=== PATIENT | male | born 1955 | race Caucasian/White ===

== ENCOUNTER 2021-03-24 13:34 | Emergency (ER) | payer BC, SELFPAY ==
--- NOTE | ~2021-03-24 | XR_ITS ---
EXAMINATION: XR chest 2V DATE: 03/24/2021 14:41 INDICATION: Shortness of breath. Left-sided chest pain. Cough. TECHNIQUE: Frontal and lateral views of the chest were obtained on 3 radiographs. COMPARISON: Chest 2 views 06/14/2017 FINDINGS: The lungs are hyperexpanded with lucencies, consistent with emphysema. No pleural effusion or pneumothorax. The heart size is normal. IMPRESSION: 1. Emphysema. Reviewed, dictated and finalized at location B. IMPRESSION: 1. Emphysema.
[2021-03-24 13:40] VITALS: BP 131/92; PULSE 111; RESP 20; TEMP 36.7; O2SAT 85
--- NOTE | 2021-03-24 14:11 | ECG_ITS ---
Measurements Intervals [place] Rate: 89 P: 89 [place]: 142 QRS: 90 QRSD: 122 T: 84 QT: 393 QTc: 481 Interpretive Statements SINUS RHYTHM RIGHT BUNDLE BRANCH BLOCK BASELINE ARTIFACT- V4-V5 ABNORMAL ECG Electronically Signed On 03-24-2021 14:43:26 CDT by Anand Grewal D.O.
[2021-03-24] MEDS: methylPREDNISolone SOD SUCC 125 MG VIAL IV PUSH (14:26)
[2021-03-24] MEDS: SODIUM CHLORIDE 0.9% IV 500 ML 999 ML IV CONT (14:26)
[2021-03-24 14:28] LABS: Basophils Absolute Auto 0.05 K/mm3 (0.00-0.10); Basophils Percent Auto 0.6 % (0.0-1.0); Eosinophils Absolute Auto 0.12 K/mm3 (0.02-0.50); Eosinophils Percent Auto 1.3 % (1.0-6.0); Hematocrit 42.7 % (40.0-54.0); Hemoglobin 14.6 g/dL (14.0-18.0); Immature Granulocyte Absolute 0.03 K/mm3 (0.00-0.00); Immature Granulocyte Percent A 0.3 % (0.0-0.0); Lymphocytes Absolute Auto 1.36 K/mm3 (1.10-4.50); Lymphocytes Percent Auto 15.1 % (18.0-42.0); Mean Corpuscular HGB Conc 34.2 g/dL (32.0-36.0); Mean Corpuscular Hemoglobin 33.7 pg (27.0-31.0); Mean Corpuscular Volume 98.6 fL (78.0-102.0); Mean Platelet Volume 10.2 fl (8.7-11.0); Monocytes Absolute Auto 0.67 K/mm3 (0.10-0.90); Monocytes Percent Auto 7.5 % (2.0-11.0); Neutrophils Absolute Auto 6.8 K/mm3 (1.7-7.2); Neutrophils Percent Auto 75.2 % (50.0-70.0); Platelet Count Result 188 K/mm3 (150-420); Red Blood Count 4.33 M/mm3 (4.70-6.10); Red Cell Distribution Width 13.2 % (11.6-14.4)
[2021-03-24] MEDS: IPRATROPIUM 0.5 MG/ALBUTEROL SULFATE 2.5 MG AMPUL.NEB 3 ML INHALATION (14:43)
[2021-03-24 14:45] VITALS: PULSE 90; RESP 20; O2SAT 95
[2021-03-24 14:48] LABS: Alanine Aminotransferase 24 U/L (16-63); Albumin Level 3.8 g/dL (3.4-5.0); Alkaline Phosphatase 88 U/L (46-116); Anion Gap 6 mmol/L (8-16); Aspartate Amino Transferase 28 U/L (15-37); Bilirubin,Total 0.9 mg/dL (0.00-1.00); Blood Urea Nitrogen 8 mg/dL (7-18); Calcium 8.8 mg/dL (8.5-10.1); Carbon Dioxide 30 mmol/L (21-32); Chloride 103 mmol/L (98-108); Estimated Glomerular Filt Rate > 60; Glucose 104 mg/dL (70-99); Osmolality Calculated 286 mOsm/kg (285-295); Potassium 4.2 mmol/L (3.5-5.1); Sodium 139 mmol/L (136-145); Total Protein 6.3 g/dL (6.4-8.2)
[2021-03-24 14:49] LABS: Troponin I 5.3 ng/L (0.00-60.4)
[2021-03-24 14:54] VITALS: PULSE 88; RESP 20; O2SAT 100
--- NOTE | 2021-03-24 14:57 | ED.SOB ---
HPI - SOB/Dyspnea General Chief Complaint: Shortness of Breath/Dyspnea Stated Complaint: SOB Source: patient Mode of arrival: ambulatory History of Present Illness HPI Narrative: this 65-year-old male with a history of COPD that presents with increased shortness of breath currently uses only albuterol at home and has not had to use albuterol in quite a while, but yesterday he was outdoors and apparently became more short of breath with a cough currently there is no audible wheezing no fever chills no chest pain no abdominal pain no flank pain no nausea vomiting. MD elicited complaint: shortness of breath and cough Pertinent past history: COPD Onset (ago): day(s) Context: allergen exposure Timing: constant Severity: mild Exacerbating factors: nothing Relieving factors: bronchodilators Known history of: COPD Associated symptoms: denies other symptoms Related Data Home Medications Medication Instructions Recorded Confirmed ipratropium-albuterol 3 ml INHALATION TID PRN 03/24/21 03/24/21 montelukast 10 mg PO DAILY 03/24/21 03/24/21 prednisone 2.5 mg PO DAILY 03/24/21 03/24/21 Allergies Allergy/AdvReac Type Severity Reaction Status Date / Time No Known Allergies Allergy Unverified 05/25/16 13:27 Review of Systems Review of Systems: All systems reviewed & are unremarkable except as noted in HPI and below PMFSH Past Medical History Medical History COPD (chronic obstructive pulmonary disease) Exam Const: General: no acute distress Orientation/consciousness: patient oriented x3 HENMT: Head: normal to inspection and contusion Eyes: Conjunctivae: conjunctivae normal Pupils: Equal, round and reactive pupils present Neck: Neck: normal visual inspection Chest: Chest palpation & inspection: normal inspection of the chest Resp: Effort & Inspection: normal respiratory effort Auscultation: clear to auscultation bilaterally Cardio: Rate: regular rate Rhythm: regular rhythm GI: GI Palp: Yes Soft to palpation Skin: General skin exam: normal color Rashes: no rashes Neuro: General: patient oriented x3 and moves all extremities Psych: Mental Status: mental status grossly normal Affect: normal affect Course Course Emergency Course: patient doing well improved after breathing treatment and IV steroids and will send home with some inhalers and p.o. steroids and p.o. antibiotics. Vital Signs Vital signs: Vital Signs Temperature 36.7 C 03/24/21 13:40 Pulse Rate 111 H 03/24/21 13:40 Respiratory Rate 20 03/24/21 13:40 Blood Pressure 131/92 H 03/24/21 13:40 Pulse Oximetry 85 L 03/24/21 13:40 Temperature 36.7 C 03/24/21 13:40 Pulse Rate 88 03/24/21 14:54 Respiratory Rate 20 03/24/21 14:54 Blood Pressure 131/92 H 03/24/21 13:40 Pulse Oximetry 100 03/24/21 14:54 MDM - SOB/Dyspnea Lab Data Result diagrams: 03/24/21 14:24 03/24/21 14:24 Labs: Lab Results 03/24/21 03/24/21 03/24/21 Range/Units 14:24 14:24 14:24 WBC 9.0 (4.8-10.8) K/mm3 RBC 4.33 L (4.70-6.10) M/mm3 Hgb 14.6 (14.0-18.0) g/dL Hct 42.7 (40.0-54.0) % MCV 98.6 (78.0-102.0) fL MCH 33.7 H (27.0-31.0) pg MCHC 34.2 (32.0-36.0) g/dL RDW 13.2 (11.6-14.4) % Plt Count 188 (150-420) K/mm3 MPV 10.2 (8.7-11.0) fl Immature Gran % (Auto) 0.3 H (0.0-0.0) % Neut % (Auto) 75.2 H (50.0-70.0) % Lymph % (Auto) 15.1 L (18.0-42.0) % [place] % (Auto) 7.5 (2.0-11.0) % Eos % (Auto) 1.3 (1.0-6.0) % Baso % (Auto) 0.6 (0.0-1.0) % Lymph # (Auto) 1.36 (1.10-4.50) K/mm3 [place] # (Auto) 0.67 (0.10-0.90) K/mm3 Eos # (Auto) 0.12 (0.02-0.50) K/mm3 Baso # (Auto) 0.05 (0.00-0.10) K/mm3 Abs Immat Gran (auto) 0.03 H (0.00-0.00) K/mm3 Absolute Neuts (auto) 6.8 (1.7-7.2) K/mm3 Absolute Nucleated RBC 0.00 (0.00-0.00) K/mm3 Nucleated RBC % 0.0 (0-0.0)
[2021-03-24 15:14] VITALS: BP 98/70; PULSE 80; O2SAT 96
== END 2021-03-24 15:25 | disposition home or self-care (01) ==
PROVIDERS: Emergency Provider Emergency Medicine; PCP Internal Medicine
DX: J42 Unspecified chronic bronchitis (principal)
CPT/HCPCS: 36415; 71046; 80053; 84484; 85025; 93005; 94640; 96361; 96374; 99283; 99284; J2930; J7040

== ENCOUNTER 2021-09-17 12:38 | Outpatient (CLI) | payer BC, SELFPAY ==
[2021-09-17 13:50] LABS: SARS-CoV-2 RNA PCR Positive (Negative)
== END 2021-09-17 12:39 | disposition home or self-care (01) ==
LOC: CHSLAB 12:42
PROVIDERS: PCP Internal Medicine; Visit Provider Internal Medicine
DX: U07.1 COVID-19 (principal)
CPT/HCPCS: C9803; U0003; U0005

== ENCOUNTER 2021-09-23 09:53 | Outpatient (CLI) | payer BC, SELFPAY ==
--- NOTE | 2021-09-23 10:00 | PC.NURSE ---
Pt to room 211 per WC. A&Ox3. Regeneron infusion plan of care explained. Consent signed. Pt oriented to room. Call jacome in reach. Reminded to call with needs.
[2021-09-23 10:15] VITALS: BP 110/68; PULSE 123; RESP 20; TEMP 38.4; O2SAT 80
[2021-09-23] MEDS: ACETAMINOPHEN 325 MG TABLET PO (10:15)
--- NOTE | 2021-09-23 10:55 | PC.NURSE ---
SAO2 up to 92% on 3L O2 per NC. Dr. Maharaj's office notified of low O2 Sat. requested pt be evaluated in the ER. ER notified, will take him after infusion is complete. Pt has no complaints of SOB, no distress noted.
[2021-09-23] MEDS: diphenhydrAMINE HCl CAP 25 MG CAPSULE PO (11:17)
[2021-09-23] MEDS: FAMOTIDINE 20 MG TABLET PO (11:17)
--- NOTE | 2021-09-23 11:40 | PC.NURSE ---
Infusion completed. Pt tolerated well. Has no complaints. Taken to ER for O2 evaluation per Dr. Maharaj's request. Pt taken to Room 6. Report given to Shruti.
== END 2021-09-23 09:54 | disposition home or self-care (01) ==
PROVIDERS: PCP Internal Medicine; Visit Provider Internal Medicine
DX: U07.1 COVID-19 (principal); J44.9 Chronic obstructive pulmonary disease, unspecified
CPT/HCPCS: A9270; J7050; M0243; Q0244

== ENCOUNTER 2021-09-23 11:47 | Emergency (ER) | payer BC, SELFPAY ==
--- NOTE | ~2021-09-23 | CT_ITS ---
EXAMINATION:CT diagnostic chest wo con DATE: 09/23/2021 12:40 INDICATION: Shortness of breath. TECHNIQUE: Computed tomography (CT) of the chest was performed without intravenous contrast. Automate d exposure control and iterative reconstruction technique were employed. The dose-length product (DLP ) was 156.58 mGy-cm. COMPARISON: Chest 2 views 03/24/2021 FINDINGS: There is severe emphysema. There is mild scarring at the lung apices. There is mucous plugg ing in posterobasal segment right lower lobe with subsegmental airspace opacities. There is mucous pl ugging in the basilar segments of left lower lobe with subsegmental airspace and groundglass opacitie s. No pleural effusion. The heart size is normal. There are coronary artery calcifications. No perica rdial effusion. There is mild thoracic spondylosis. IMPRESSION: 1. Pneumonia and mucous plugging involving the basilar lower lobes, left worse than right. 2. Severe emphysema. Reviewed, dictated and finalized at location B. COMPLIANCE COORDINATOR
--- NOTE | 2021-09-23 11:59 | ECG_ITS ---
Measurements Intervals [place] Rate: 98 P: 90 [place]: 126 QRS: 100 QRSD: 121 T: 76 QT: 372 QTc: 476 Interpretive Statements SINUS RHYTHM POSSIBLE LEFT ATRIAL ENLARGEMENT RIGHT BUNDLE BRANCH BLOCK BASELINE ARTIFACT- I, II, III, AVL, V1, V4-V5 ABNORMAL ECG Electronically Signed On 09-23-2021 13:03:22 LIFE SKILLS COACH by Anand Grewal D.O.
[2021-09-23 12:10] VITALS: BP 110/69; PULSE 112; RESP 28; TEMP 36.8; O2SAT 95
[2021-09-23 12:20] VITALS: PULSE 98; RESP 20; O2SAT 97
[2021-09-23] MEDS: ALBUTEROL SULFATE (*SP) INHALER 2 PUFF INHALATION (12:20)
[2021-09-23 12:29] LABS: Base Excess ABG 4.7 mmol/L (0-2); HCO3 ABG 29.1 mmol/L (23-29); Oxygen Content ABG 20.4 %vol (16.0-22.0); Oxygen Saturation ABG 93.1 % (95-97); Oxyhemoglobin 90.2 % (94-100); PCO2 ABG 42.1 mmHg (35-45); PO2 ABG 60.9 mmHg (80-90); Total Hemoglobin 16.1 g/dL (12.0-18.0); pH ABG 7.46 (7.35-7.45)
[2021-09-23 12:31] LABS: Device NASAL CANNULA; Modified Allen's Test Pass; Site Drawn LEFT RADIAL
[2021-09-23 12:34] LABS: Basophils Absolute Auto 0.01 K/mm3 (0.00-0.10); Basophils Percent Auto 0.1 % (0.0-1.0); Hematocrit 45.9 % (40.0-54.0); Hemoglobin 15.4 g/dL (14.0-18.0); Immature Granulocyte Absolute 0.05 K/mm3 (0.00-0.00); Immature Granulocyte Percent A 0.5 % (0.0-0.0); Lymphocytes Absolute Auto 1.02 K/mm3 (1.10-4.50); Lymphocytes Percent Auto 10.8 % (18.0-42.0); Mean Corpuscular HGB Conc 33.6 g/dL (32.0-36.0); Mean Corpuscular Hemoglobin 32.2 pg (27.0-31.0); Mean Corpuscular Volume 95.8 fL (78.0-102.0); Mean Platelet Volume 10.4 fl (8.7-11.0); Monocytes Absolute Auto 0.71 K/mm3 (0.10-0.90); Monocytes Percent Auto 7.5 % (2.0-11.0); Neutrophils Absolute Auto 7.7 K/mm3 (1.7-7.2); Neutrophils Percent Auto 81.1 % (50.0-70.0); Platelet Count Result 144 K/mm3 (150-420); Red Blood Count 4.79 M/mm3 (4.70-6.10); Red Cell Distribution Width 12.7 % (11.6-14.4); White Blood Count 9.5 K/mm3 (4.8-10.8)
[2021-09-23] MEDS: SODIUM CHLORIDE 0.9% IV 500 ML 999 ML IV CONT (12:45)
[2021-09-23] MEDS: UMECLIDINIUM BROMIDE 62.5 MCG ELLIPTA 1 PUFF INHALATION (12:46)
[2021-09-23] MEDS: DEXAMETHASONE SOD PHOS INJ 4 MG/ML VIAL IV PUSH (12:46)
[2021-09-23 12:49] LABS: Alanine Aminotransferase 41 U/L (16-63); Albumin Level 2.9 g/dL (3.4-5.0); Alkaline Phosphatase 87 U/L (46-116); Anion Gap 7 mmol/L (8-16); Aspartate Amino Transferase 59 U/L (15-37); Bilirubin,Total 0.4 mg/dL (0.00-1.00); Blood Urea Nitrogen 14 mg/dL (7-18); Carbon Dioxide 30 mmol/L (21-32); Chloride 96 mmol/L (98-108); Estimated CRCL calculation 50 ml/min; Estimated Glomerular Filt Rate > 60; Glucose 110 mg/dL (70-99); Osmolality Calculated 277 mOsm/kg (285-295); Potassium 3.9 mmol/L (3.5-5.1); Sodium 133 mmol/L (136-145); Total Protein 6.1 g/dL (6.4-8.2); Troponin I 12.8 ng/L (0.00-60.4)
[2021-09-23 12:51] LABS: Lactic Acid Reflex 1.3 mmol/L (0.4-2.0)
[2021-09-23 13:33] VITALS: BP 97/67; PULSE 83; RESP 20; O2SAT 99
--- NOTE | 2021-09-23 14:06 | PC.NURSE ---
Turned oxygen off to see if pt could maintain oxygen saturation. Will monitor pt closely.
--- NOTE | 2021-09-23 14:40 | PC.NURSE ---
Per pt ok to speak with Astrid peterson. Astrid confirms pt has oxygen concentrator at home. Astrid concerned to bring pt home. Explained to pt and Astrid that pt should wear oxygen when needed at home and at night. Discussed with pt and family to sleep elevated to help reducing coughing and difficulty breathing. Also discussed supportive and symptomatic care at home. Astrid and pt aware to come back for worsening symptoms.
[2021-09-23] MEDS: AZITHROMYCIN 250 MG TABLET 500 MG PO (14:51)
--- NOTE | 2021-09-23 15:13 | ED.SOB ---
HPI - SOB/Dyspnea General Source: patient and RN notes reviewed Mode of arrival: wheelchair Limitations: no limitations History of Present Illness MD elicited complaint: shortness of breath and cough Pertinent past history: COPD Onset (ago): day(s) (3) Timing: constant Severity: moderate Exacerbating factors: exertion Relieving factors: oxygen Known history of: COPD Associated symptoms: fever, cough and wheezing Treatment prior to arrival: none Related Data Home oxygen amount: other (pt has a concentrator) Home Medications Medication Instructions Recorded Confirmed ipratropium-albuterol 3 ml INHALATION TID PRN 03/24/21 09/23/21 montelukast 10 mg PO DAILY 03/24/21 09/23/21 prednisone 10 mg PO DAILY 09/23/21 09/23/21 Allergies Allergy/AdvReac Type Severity Reaction Status Date / Time No Known Allergies Allergy Unverified 05/25/16 13:27 Review of Systems Review of Systems: All systems reviewed & are unremarkable except as noted in HPI and below PMFSH Past Medical History Medical History COPD (chronic obstructive pulmonary disease) Exam Const: General: no acute distress Orientation/consciousness: patient oriented x3 Limitations: no limitations HENMT: Head: normal to inspection Ears: external ears normal and TM's normal bilaterally General nose exam: Normal external nose present and Normal nares present Mouth: Yes lip normal and Yes moist mucous membranes Teeth and gingiva: dentition normal Eyes: Conjunctivae: conjunctivae normal Pupils: Equal, round and reactive pupils present EOM: EOMs intact bilaterally Neck: Neck: normal visual inspection and no lymphadenopathy Chest: Chest palpation & inspection: normal inspection of the chest Resp: Effort & Inspection: tachypneic and uses accessory muscles Auscultation: crackles, rales, rhonchi and wheezes Cardio: Rate: regular rate Rhythm: regular rhythm GI: GI Palp: Yes Soft to palpation and No Tenderness to palpation present (GI) Percussion: Yes normal to percussion : General: Yes CVA tenderness Male General Exam: Yes normal external exam Back/Spine/Pelvis: Back: no CVA tenderness Skin: General skin exam: normal color Rashes: no rashes Neuro: General: patient oriented x3, moves all extremities, no meningeal signs, no focal motor deficits and CN's II-XI intact bilaterally Extrem: General: normal to inspection and no pedal edema Psych: Mental Status: mental status grossly normal Thought content: Yes Normal thought content present Course Course Emergency Course: Pt breathing was improved and he was insistent on going home. Reevaluation(s) Date: 09/23/21 Time: 12:45 Vital Signs Vital signs: Vital Signs Temperature 36.8 C 09/23/21 12:10 Pulse Rate 112 H 09/23/21 12:10 Respiratory Rate 28 H 09/23/21 12:10 Blood Pressure 110/69 09/23/21 12:10 Pulse Oximetry 95 09/23/21 12:10 Temperature 36.8 C 09/23/21 12:10 Pulse Rate 86 09/23/21 15:52 Respiratory Rate 20 09/23/21 15:52 Blood Pressure 100/69 09/23/21 15:52 Pulse Oximetry 95 09/23/21 15:52 MDM - SOB/Dyspnea Differential Diagnosis Differential diagnosis: Likely acute exacerbation of chronic obstructive airways disease, community acquired pneumonia and asthma with exacerbation Medical Records Attestation: I reviewed the patient's medical records. Lab Data Attestation: I reviewed the patient's lab results. Result diagrams: 09/23/21 12:27 09/23/21 12:27 Labs: Lab Results 09/23/21 09/23/21 09/23/21 Range/Units 12:27 12:27 12:27 WBC 9.5 (4.8-10.8) K/mm3 RBC 4.79 (4.70-6.10) M/mm3 Hgb 15.4 (14.0-18.0) g/dL Hct 45.9 (40.0-54.0) % MCV 95.8 (78.0-102.0) fL MCH 32.2 H (27.0-31.0) pg MCHC 33.6 (32.0-36.0) g/dL RDW 12.7 (11.6-14.4) % Plt Count 144 L (150-420) K/mm3 MPV 10.4 (8.7-11.0) fl Immature Gran % (Auto) 0.5
[2021-09-23 15:52] VITALS: BP 100/69; PULSE 86; RESP 20; O2SAT 95
== END 2021-09-23 15:54 | disposition home or self-care (01) ==
PROVIDERS: Emergency Provider Emergency Medicine; PCP Internal Medicine
DX: J18.9 Pneumonia, unspecified organism (principal); J44.0 Chronic obstructive pulmonary disease with (acute) lower respiratory infection
CPT/HCPCS: 36415; 36600; 71250; 80053; 82805; 83605; 84484; 85025; 87040; 93005; 94640; 96361; 96365; 96375; 99283; 99284; A9270; J0696; J1100; J7040

== ENCOUNTER 2021-11-05 11:55 | Outpatient (CLI) | payer MEDICARE, SELFPAY ==
--- NOTE | ~2021-11-05 | CT_ITS ---
EXAMINATION: CTA chest PE protocol EXAM DATE: 11/05/2021 15:03 INDICATION: Dyspnea, Positive D-Dimer, Hypoxemia . TECHNIQUE: Spiral CTA of the chest (pulmonary arteries) was performed with 100 cc Omnipaque 350 intr avenous contrast injection. Images were acquired during the pulmonary arterial phase. Coronal maxi mum intensity projection 3D-reconstructions were created by the technologist on dedicated workstation . Axial, coronal and sagittal reformatted images were reviewed. The dose-length product (DLP) for t his examination was 166.20 mGy-cm. The exposure was tailored according to patient size (auto mA exp osure control), and iterative reconstruction (ASIR) was used as additional dose reduction technique. Comparison is made to prior examination from 09/23/2021. FINDINGS: Pulmonary arteries are well opacified and without intraluminal filling defects. No thora cic aortic dissection. Severe emphysema and hyperinflation. Small amount of right lower lobe airspac e disease which is most consistent with pneumonia. More linear left basilar airspace disease consiste nt with subsegmental atelectasis. There are no pleural or pericardial effusions. Some scattered re gions of endobronchial debris. Small amount of biapical scarring. There is no mediastinal, hilar or axillary lymphadenopathy. There is no pneumothorax. Heart normal in size. There is mild to mode rate coronary arterial calcification, arterial sclerosis. Upper abdomen is unremarkable. No osteob lastic or osteolytic lesions identified. IMPRESSION: 1. Subsegmental right basilar airspace disease most consistent with small amount of pneumonia. 2. Resolution of prior left basilar pneumonia with some residual subsegmental atelectasis. 3. Severe emphysema and hyperinflation. Reviewed, dictated and finalized at location A. AL ASSISTANT IMPRESSION: 1. Subsegmental right basilar airspace disease most consistent with small amou nt of pneumonia. 2. Resolution of prior left basilar pneumonia with some residual subsegmental atelectasis. 3. Severe emphysema and hyperinflation.
--- NOTE | ~2021-11-05 | XR_ITS ---
EXAMINATION: XR chest 2V DATE: 11/05/2021 12:45 INDICATION: Dyspnea. Hypoxemia. COVID 19. TECHNIQUE: PA and lateral views of the chest were obtained. COMPARISON: Chest radiograph dated and CT dated 09/23/2021 FINDINGS: Hyperexpansion of lungs with increased lucency and architectural distortion consistent with severe em physema. Mild predominately streaky opacities at the bilateral lung bases. No other airspace opacitie s, pulmonary edema, pleural effusion or pneumothorax. Heart size is normal. Visualized bones and soft tissues are unremarkable. IMPRESSION: 1. Severe emphysema. 2. Mild streaky bibasilar opacities which could represent atelectasis or pneumonia. Reviewed, dictated and finalized at location B. TIONAL TRAINING DIRECTOR IMPRESSION: 1. Severe emphysema. 2. Mild streaky bibasilar opacities which could represent atelectasis or pneumo avinash.
[2021-11-05 12:56] LABS: Basophils Absolute Auto 0.02 K/mm3 (0.00-0.10); Basophils Percent Auto 0.1 % (0.0-1.0); Hematocrit 50.5 % (37.0-46.0); Hemoglobin 16.7 g/dL (12.4-15.3); Immature Granulocyte Absolute 0.07 K/mm3 (0.00-0.00); Immature Granulocyte Percent A 0.4 % (0.0-0.0); Lymphocytes Absolute Auto 0.72 K/mm3 (1.10-4.50); Lymphocytes Percent Auto 4.1 % (18.0-42.0); Mean Corpuscular HGB Conc 33.1 g/dL (32.0-36.0); Mean Corpuscular Hemoglobin 32.5 pg (27.0-31.0); Mean Corpuscular Volume 98.2 fL (78.0-102.0); Mean Platelet Volume 10.5 fl (8.7-11.0); Monocytes Absolute Auto 0.83 K/mm3 (0.10-0.90); Monocytes Percent Auto 4.7 % (2.0-11.0); Neutrophils Absolute Auto 15.9 K/mm3 (1.7-7.2); Neutrophils Percent Auto 90.7 % (50.0-70.0); Platelet Count Result 221 K/mm3 (150-420); Red Blood Count 5.14 M/mm3 (4.70-6.10); Red Cell Distribution Width 13.2 % (11.6-14.4); White Blood Count 17.6 K/mm3 (4.8-10.8)
[2021-11-05 13:17] LABS: Alanine Aminotransferase 27 U/L (16-63); Albumin Level 3.8 g/dL (3.4-5.0); Alkaline Phosphatase 114 U/L (46-116); Anion Gap 13 mmol/L (8-16); Aspartate Amino Transferase 35 U/L (15-37); Bilirubin,Total 0.5 mg/dL (0.00-1.00); Blood Urea Nitrogen 14 mg/dL (7-18); Calcium 9.6 mg/dL (8.5-10.1); Carbon Dioxide 29 mmol/L (21-32); Chloride 97 mmol/L (98-108); Estimated Glomerular Filt Rate > 60; Glucose 144 mg/dL (70-99); NT Pro B Type Natriuretic Pept 263 pg/mL (0-125); Osmolality Calculated 291 mOsm/kg (285-295); Sodium 139 mmol/L (136-145); Total Protein 8.1 g/dL (6.4-8.2)
[2021-11-05 13:38] LABS: SARS-CoV-2 Ag Negative (Negative)
[2021-11-05 13:40] LABS: D Dimer 0.55 mg/L (0.19-0.50)
== END 2021-11-05 11:56 | disposition home or self-care (01) ==
PROVIDERS: PCP Internal Medicine; Visit Provider Internal Medicine
DX: R06.00 Dyspnea, unspecified (principal); R09.02 Hypoxemia; R79.1 Abnormal coagulation profile; Z20.822 Contact with and (suspected) exposure to COVID-19
CPT/HCPCS: 36415; 71046; 71275; 80053; 83880; 85025; 85380; 87426; C9803; Q9967

== ENCOUNTER 2022-08-10 12:05 | Outpatient (CLI) | payer MEDICARE, SELFPAY ==
--- NOTE | ~2022-08-10 | CT_ITS ---
EXAMINATION: CTA chest PE protocol DATE: 08/10/2022 14:45 INDICATION: Chest pain. Cough. Shortness of breath. TECHNIQUE: Computed tomography angiography (CTA) of the chest was performed with 100 mL Omnipaque-350 intravenous contrast timed to evaluate the pulmonary arteries. Coronal maximum intensity projection 3D-reconstructions were created by the technologist. Automated exposure control and iterative reconst ruction technique were employed. The dose-length product was 170.66 mGy-cm. COMPARISON: Chest CT 11/05/2021 FINDINGS: There is severe emphysema. There is material in the lower lobe bronchi. There are patchy ai rspace opacities in the lower lobes, consistent with pneumonia. No pleural effusion. The heart size i s normal. No pericardial effusion. There is no pulmonary embolus. There is mild thoracic spondylosis. IMPRESSION: 1. No pulmonary embolus. 2. Bilateral lower lobe pneumonia. 3. Material in the lower lobe bronchi, which may be aspiration or mucous plugging. 4. Severe emphysema. Reviewed, dictated and finalized at location A. IMPRESSION: 1. No pulmonary embolus. 2. Bilateral lower lobe pneumonia. 3. Material in the lower lobe bronchi, which may be aspiration or mucous pluggi ng. 4. Severe emphysema.
--- NOTE | ~2022-08-10 | XR_ITS ---
EXAMINATION: XR chest 2V DATE: 08/10/2022 12:27 INDICATION: Shortness of breath TECHNIQUE: PA and lateral views of the chest are obtained. COMPARISON: 11/05/2021 FINDINGS: The lungs are severely hyperinflated but free of acute opacities. No pleural effusion or pn eumothorax. The cardiomediastinal silhouette is normal. There is mild thoracic spondylosis. IMPRESSION: 1. Severe emphysema without acute cardiopulmonary abnormality. Reviewed, dictated and finalized at location A.
[2022-08-10 12:41] LABS: Basophils Absolute Auto 0.03 K/mm3 (0.00-0.10); Basophils Percent Auto 0.4 % (0.0-1.0); Eosinophils Absolute Auto 0.03 K/mm3 (0.02-0.50); Eosinophils Percent Auto 0.4 % (1.0-6.0); Hemoglobin 15.8 g/dL (12.4-15.3); Immature Granulocyte Absolute 0.03 K/mm3 (0.00-0.00); Immature Granulocyte Percent A 0.4 % (0.0-0.0); Lymphocytes Absolute Auto 0.92 K/mm3 (1.10-4.50); Lymphocytes Percent Auto 11.2 % (18.0-42.0); Mean Corpuscular HGB Conc 32.9 g/dL (32.0-36.0); Mean Corpuscular Hemoglobin 32.7 pg (27.0-31.0); Mean Corpuscular Volume 99.4 fL (78.0-102.0); Mean Platelet Volume 10.5 fl (8.7-11.0); Monocytes Absolute Auto 0.87 K/mm3 (0.10-0.90); Monocytes Percent Auto 10.6 % (2.0-11.0); Neutrophils Absolute Auto 6.3 K/mm3 (1.7-7.2); Platelet Count Result 220 K/mm3 (150-420); Red Blood Count 4.83 M/mm3 (4.70-6.10); Red Cell Distribution Width 13.2 % (11.6-14.4); White Blood Count 8.2 K/mm3 (4.8-10.8)
[2022-08-10 12:44] LABS: Appearance Urine Clear (Clear); Bilirubin Urine 2+ (Negative); Blood Urine 1+ (Negative); Glucose Urine UA Trace (Negative); Ketones Urine 1+ (Negative); Leukocyte Esterase Ur Negative (Negative); Nitrate Urine Negative (Negative); Protein Urine 1+ (Negative); Specific Grav Ur >= 1.030 (1.010-1.020); Urobilinogen Urine >=8.0 mg/dL (0.2-1.0)
[2022-08-10 12:49] LABS: Add Urine Microscopic? YES; Bacteria Urine Trace /hpf; Color Urine Amber (Yellow); Mucus Urine Moderate /lpf; WBC Urine 0-3 /hpf (0-3)
[2022-08-10 13:02] LABS: Alanine Aminotransferase 26 U/L (16-63); Albumin Level 3.3 g/dL (3.4-5.0); Alkaline Phosphatase 108 U/L (46-116); Anion Gap 5 mmol/L (8-16); Aspartate Amino Transferase 23 U/L (15-37); Bilirubin,Total 0.7 mg/dL (0.00-1.00); Blood Urea Nitrogen 17 mg/dL (7-18); Calcium 9.1 mg/dL (8.5-10.1); Carbon Dioxide 33 mmol/L (21-32); Chloride 101 mmol/L (98-108); D Dimer 0.56 mg/L (0.19-0.50); Estimated Glomerular Filt Rate > 60; Glucose 139 mg/dL (70-99); NT Pro B Type Natriuretic Pept 465 pg/mL (0-125); Osmolality Calculated 291 mOsm/kg (285-295); Potassium 4.2 mmol/L (3.5-5.1); Sodium 139 mmol/L (136-145)
[2022-08-10 13:18] LABS: Influenza A QL RT-PCR Negative (Negative); Influenza B QL RT-PCR Negative (Negative); SARS-CoV-2 RNA PCR Negative (Negative)
[2022-08-10 15:55] LABS: Prostate Specific Antigen 0.7 ng/mL (< OR = 4.0)
== END 2022-08-10 12:06 | disposition home or self-care (01) ==
PROVIDERS: PCP Internal Medicine; Visit Provider Nurse Practitioner Family
DX: R06.02 Shortness of breath (principal); R79.1 Abnormal coagulation profile; J06.9 Acute upper respiratory infection, unspecified; N39.0 Urinary tract infection, site not specified; Z12.5 Encounter for screening for malignant neoplasm of prostate; I50.9 Heart failure, unspecified; R31.9 Hematuria, unspecified; Z20.822 Contact with and (suspected) exposure to COVID-19
CPT/HCPCS: 36415; 71046; 71275; 80053; 81001; 83880; 84153; 85025; 85380; 87086; 87502; 88112; 88175; C9803; G0103; G0145; Q9967; U0003; U0005

== ENCOUNTER 2022-09-21 12:28 | Outpatient (CLI) | payer MEDICARE, SELFPAY ==
--- NOTE | 2022-09-21 01:00 | ECHO_ITS ---
Patient Info Name: Taj Huerta Age: 66 years : 1955 Gender: Male Ht: 69 in Wt: 115 lbs BSA: 1.58 m2 HR: 109 bpm BP: 106 / 68 mmHg Heart Rhythm: Sinus Rhythm Technical Quality: Fair Exam Date: 09/21/2022 1:18 PM Exam Location: [facility] Patient Status: Outpatient Admit Date: 09/21/2022 Staff Ordering Physician: JahAwilda NP Resource Management Specialist: Nancie Damico RDCS Attending Provider: EnriqueAwilda NP Referring Physician: Jah DORMAN; Exam Type: CA echo doppler color flow Study Info Indications - CHF Complete two-dimensional, color flow and Doppler transthoracic echocardiogram is performed. Summary 1. Complete two-dimensional, color flow and Doppler transthoracic echocardiogram is performed. 2. Left ventricular chamber dimension is normal. 3. Left ventricular systolic function is normal, estimated at 60-65%. 4. The left ventricular diastolic function is normal. 5. E/e' 6 is not elevated. 6. There is mild mitral valve regurgitation. 7. There is mild tricuspid valve regurgitation. 8. No pulmonary hypertension, estimated pulmonary arterial systolic pressure is 33 mmHg. Left Ventricle E/e' 6 is not elevated. Left ventricular chamber dimension is normal. Left ventricular systolic function is normal, estimated at 60-65%. The left ventricular diastolic function is normal. Right Ventricle Right ventricular systolic function is normal and with normal TAPSE 1.9 cm. Right ventricular chamber dimension is normal. Left Atria Left atrial chamber dimension is normal. Right Atria Right atrial chamber dimension is normal. Aortic Valve The aortic valve is trileaflet. There is no aortic valve stenosis. There is no aortic valve regurgitation. Pulmonic Valve There is no pulmonic regurgitation. Mitral Valve There is no mitral valve stenosis. There is mild mitral valve regurgitation. Tricuspid Valve There is mild tricuspid valve regurgitation. No pulmonary hypertension, estimated pulmonary arterial systolic pressure is 33 mmHg. Pericardium/Pleural There is no pericardial effusion. Inferior Vena Cava Normal inferior vena cava with >50% collapse upon inspiration consistent with normal right atrial pressure, 5 mmHg. Aorta The aortic root size at the sinus of Valsalva is normal. Left Ventricular Outflow Tract Name Value Normal LVOT 2D LVOT Diameter 2.1 cm LVOT Doppler LVOT Peak Velocity 54 cm/s LVOT Peak Gradient 1 mmHg LVOT Mean Gradient 0 mmHg LVOT VTI 10 cm LVOT VTI/AV VTI Ratio 1.3 LVOT Stroke Volume 35 ml Pulmonic Valve Name Value Normal RVOT Doppler RVOT Peak Gradient 1 mmHg PV Doppler
== END 2022-09-21 12:29 | disposition home or self-care (01) ==
LOC: CHSIMG 12:28
PROVIDERS: PCP Internal Medicine; Visit Provider Nurse Practitioner Family
DX: I50.9 Heart failure, unspecified (principal)
CPT/HCPCS: 93306

== ENCOUNTER 2022-10-27 15:29 | Emergency (ER) | payer MEDICARE, SELFPAY ==
--- NOTE | ~2022-10-27 | XR_ITS ---
EXAMINATION: XR chest 2V Exam Date/Time: 10/27/2022 16:20 UTILIZATION MANAGEMENT RN HISTORY: productive cough, COPD, +smoker Comparison: 08/10/2022. RESULT: Lines, tubes, and devices: None. Lungs and pleura: No focal consolidation, pneumothorax, or large effusion. Severe emphysematous lov[place] ge. Biapical pleural scarring. Cardiomediastinal silhouette: Stable. Other: No acute osseous or upper abdominal finding. IMPRESSION: No acute cardiopulmonary process. Reviewed, dictated and finalized at location K. IZATION MANAGEMENT RN
[2022-10-27 15:46] VITALS: BP 120/75; PULSE 102; RESP 18; TEMP 36.5; O2SAT 97
--- NOTE | 2022-10-27 15:53 | ECG_ITS ---
Measurements Intervals [place] Rate: 96 P: -80 [place]: 107 QRS: 83 QRSD: 122 T: 73 QT: 378 QTc: 478 Interpretive Statements SINUS RHYTHM BASELINE ARTIFACT INDETERMINATE AXIS RIGHT BUNDLE BRANCH BLOCK ABNORMAL ECG COMPARED TO ECG 09/23/2021 12:20:44 NO SIGNIFICANT CHANGE Electronically Signed On 10-27-2022 18:10:14 EQUIPMENT SPECIALIST by Min Livingston M.D.
[2022-10-27 17:29] VITALS: BP 111/86; PULSE 100; RESP 25; O2SAT 91
[2022-10-27 17:33] VITALS: O2SAT 93
[2022-10-27 17:37] VITALS: O2SAT 92
[2022-10-27 17:44] LABS: Basophils Absolute Auto 0.1 K/mm3 (0.0-0.1); Basophils Percent Auto 0.6 % (0.2-1.2); Eosinophils Absolute Auto 0.2 K/mm3 (0-0.3); Eosinophils Percent Auto 1.4 % (0-4.4); Hematocrit 45.3 % (42.0-52.0); Hemoglobin 14.8 g/dL (14.0-18.0); Immature Granulocyte Absolute 0.05 K/mm3 (0.00-0.031); Immature Granulocyte Percent A 0.5 % (0-0.5); Lymphocytes Absolute Auto 1.86 K/mm3 (0.9-3.2); Lymphocytes Percent Auto 17.2 % (18.3-44.2); Mean Corpuscular HGB Conc 32.7 g/dl (32-36); Mean Corpuscular Volume 98.1 fl (80-100); Mean Platelet Volume 10.5 fl (7.4-10.4); Monocytes Percent Auto 9.5 % (2.6-8.5); Neutrophils Absolute Auto 7.7 K/mm3 (1.3-6.7); Neutrophils Percent Auto 70.8 % (45.5-73.1); Platelet Count Result 272 k/mm3 (150-375); Red Blood Count 4.62 M/mm3 (4.6-6.20); Red Cell Distribution Width 13.2 % (11.5-14.5); White Blood Count 10.8 K/mm3 (4.5-10.0)
[2022-10-27 17:58] LABS: Alanine Aminotransferase 16 U/L (6-50); Albumin Level 4.4 g/dL (3.5-5.1); Alkaline Phosphatase 115 U/L (38-126); Anion Gap 6 mmol/L (8-16); Aspartate Amino Transferase 23 U/L (17-59); Blood Urea Nitrogen 10 mg/dL (9-20); Calcium 9.3 mg/dL (8.4-10.2); Carbon Dioxide 30 mmol/L (22-30); Chloride 101 mmol/L (98-107); Estimated CRCL calculation 75 ml/min; Estimated Glomerular Filt Rate > 60; Glucose 101 mg/dL (65-110); Potassium 4.3 mmol/L (3.4-5.0); Sodium 137 mmol/L (137-145)
[2022-10-27 18:20] LABS: Influenza A QL RT-PCR Negative (Negative); Influenza B QL RT-PCR Negative (Negative); RSV RNA, RT-PCR Negative (Negative); SARS-CoV-2 RNA PCR Negative
--- NOTE | 2022-10-27 18:21 | ED.GENADULT ---
HPI - General Adult General Chief complaint: Shortness of Breath/Dyspnea Stated complaint: SOB Time Seen by Provider: 10/27/22 17:26 Source: patient Mode of arrival: ambulatory Limitations: no limitations History of Present Illness HPI narrative: 67-year-old with a history of COPD here with complaints of productive cough for past few days. He states that he is coughing up copious amount of greenish phlegm. He denies any fever or chills. He is not on any home oxygen. Patient states that he had just had a recent stress test that started in the hospital and was told his heart is in good condition. Onset (ago): week(s) (1) Severity: moderate Exacerbating factors: none Associated symptoms: denies other symptoms Related Data Home Medications Medication Instructions Recorded Confirmed ipratropium 0.5 mg-albuterol 3 mg 3 ml inhalation TID PRN Wheezing 03/24/21 09/23/21 (2.5 mg base)/3 mL nebulization soln montelukast 10 mg tablet 10 mg PO DAILY 03/24/21 09/23/21 prednisone 10 mg tablet 10 mg PO DAILY 09/23/21 09/23/21 Allergies Allergy/AdvReac Type Severity Reaction Status Date / Time No Known Allergies Allergy Unverified 10/27/22 17:27 Review of Systems Review of Systems: All systems reviewed & are unremarkable except as noted in HPI and below Constitutional: Constitutional: Reports no additional constitutional complaints Eyes: Eyes: Reports no additional eye complaints ENT: Reports system reviewed and no additional complaints, except as documented Cardiovascular: Cardiovascular: Reports no additional cardiovascular complaints Respiratory: Respiratory: Reports as per HPI Gastrointestinal: Gastrointestinal: Reports no additional gastrointestinal complaints Musculoskeletal: Musculoskeletal: Reports no additional musculoskeletal complaints Integumentary/Breasts: Skin/Breast: Reports system reviewed and no additional complaints, except as docu PMFSH Past Medical History Medical History COPD (chronic obstructive pulmonary disease) Exam Narrative: GENERAL well appearing, ill nourished, and in no acute distress. HEAD: Normocephalic, atraumatic. EYES: PERRLA and EOMI. NECK: Supple. CHEST: Clear to auscultation. No respiratory distress. HEART: Regular rate and rhythm. No murmur heard. Normal peripheral pulses. ABDOMEN: Soft, nontender, nondistended, normal active bowel sounds. EXTREMITIES: Normal range of motion. No edema. SKIN: Warm, dry, no rash. NEURO: No focal deficits. Alert and oriented x3. PSYCH: Normal mood and affect. Course Course Emergency Course: Patient remained comfortable here in the ER with SPO2 of 97% on room air. I did inform him about his lab work, chest x-ray findings. He had not have any obvious wheeze on auscultation. Vital Signs Vital signs: Vital Signs Temperature 36.5 C 10/27/22 15:46 Pulse Rate 102 H 10/27/22 15:46 Respiratory Rate 18 10/27/22 15:46 Blood Pressure 120/75 10/27/22 15:46 Pulse Oximetry 97 10/27/22 15:46 Oxygen Delivery Room Air 10/27/22 15:46 Temperature 36.5 C 10/27/22 15:46 Pulse Rate 100 10/27/22 17:29 Respiratory Rate 25 H 10/27/22 17:29 Blood Pressure 111/86 10/27/22 17:29 Pulse Oximetry 92 10/27/22 17:37 Oxygen Delivery Room Air 10/27/22 17:37 Medical Decision Making [facility] Narrative Medical decision making narrative: 67-year-old with a history of COPD now having productive cough with no fever chest x-ray is unremarkable EKG and cardiac work-up were unremarkable we will start him on Zithromax for possible bronchitis. Recommended him to continue his home medications. Vital Signs Vital Signs: Vital Signs Temperature 36.5 C 10/27/22 15:46 Pulse Rate 102 H 10/27/22 15:46 Respiratory Rate 18 10/27/22 15:46 Blood Pressure 120/75 10/27/22 15:46 Pulse Oximetry 97 10/27/22 15:46 Oxygen Delivery Room Air 10/27/22 15:46 Te
[2022-10-27 18:55] VITALS: BP 106/75; PULSE 93; RESP 20; O2SAT 93
== END 2022-10-27 18:57 | disposition home or self-care (01) ==
LOC: ANHED 18:46
PROVIDERS: Emergency Provider Family Medicine; PCP Internal Medicine
DX: J44.9 Chronic obstructive pulmonary disease, unspecified (principal); J40 Bronchitis, not specified as acute or chronic; Z20.822 Contact with and (suspected) exposure to COVID-19
CPT/HCPCS: 36415; 71046; 80053; 85025; 87637; 93005; 99284

== ENCOUNTER 2022-10-29 12:10 | Outpatient (NON) | payer MEDICARE, SELFPAY | END 2022-10-29 12:11 | disposition home or self-care (01) | LOC: ANHLAB 12:11 | PROVIDERS: PCP Internal Medicine; Visit Provider Physician Assistant | DX: J44.9 Chronic obstructive pulmonary disease, unspecified (principal); R05.8 Other specified cough | CPT/HCPCS: 87015; 87070; 87077; 87102; 87116; 87185; 87205; 87206 ==

== ENCOUNTER 2022-11-10 07:58 | Outpatient (CLI) | payer MEDICARE, SELFPAY ==
[2022-11-10 08:10] VITALS: PULSE 93; O2SAT 96
[2022-11-10 08:16] VITALS: PULSE 107; O2SAT 89
[2022-11-10 08:17] VITALS: PULSE 105; O2SAT 90
--- NOTE | 2022-11-10 09:06 | HOMEO2EVAL ---
Evaluation was performed at [facility] - [place] [facility]: Home Oxygen (O2) Evaluation Start: 11/10/22 08:59 Freq: Status: Active Protocol: RPE Activity Type Activity Date Activity User E-sign Co-sign Detail Recorded Client Recorded Date Recorded By Document 11/10/22 08:10 HERI [id number] 11/10/22 09:01 KAB Document 11/10/22 08:16 KAB [id number] 11/10/22 09:04 KAB Document 11/10/22 08:17 KAB [id number] 11/10/22 09:05 KAB 11/10/22 11/10/22 11/10/22 08:10 08:16 08:17 Home O2 Evaluation [Oxygen] -Test Phase Resting Exercise Exercise -Oxygen Delivery Room Air [Pulse Oximetry] -Pulse Oximetry (90-100 %) 96 89 L 90 [Pulse Rate] -Pulse Rate (60-100 beats/min) 93 107 H 105 H [Evaluation] -Activity Tolerance Good [Exercise] -Ambulation Distance (feet) 200 -Ambulation Distance (meters) 60.95 [Comments] -Home Oxygen Evaluation Comments starting Pt dropped to Pt recovered. 89 but not lower. [Charges] -Treatment Charges O2 Evaluation - Outpatient
--- NOTE | 2022-11-25 16:26 | WPDPFTINT ---
PFT Procedure Performed PFT Procedure Performed Spirometry with Pre/Post Bronchodilator PFT Interpretation DOS: 11/10/2022 REQUESTING: ALLEN Moody REASON FOR TESTING: COPD PULMONARY FUNCTION TESTS Results are reliable and reproducible. Spirometry: pre bronchodilator FEV1 is 0.89 L, 29% predicted, extremely low. Pre bronchodilator FVC is 3.3 1 L, 82% predicted, normal. FEV1/ FVC ratio 27%, reduced, consistent with airflow obstruction. After bronchodilator administration, there is a 9% increase in FEV1, 0.97 L a 90 mL increase which is not statistically significant. There is a 1% drop in the FVC, not statistically significant. There are no lung volumes or diffusion to review. IMPRESSION: There is a severe obstructive ventilatory impairment with a non statistically significant increase with bronchodilator administration. Lack of response to bronchodilator should not preclude use if clinically indicated. Yaritza Figueroa MD
== END 2022-11-10 07:59 | disposition home or self-care (01) ==
LOC: CHSCARD 07:59
PROVIDERS: PCP Internal Medicine; Visit Provider Physician Assistant
DX: J44.9 Chronic obstructive pulmonary disease, unspecified (principal); R06.09 Other forms of dyspnea
CPT/HCPCS: 94060; 94618

== ENCOUNTER 2022-12-11 14:59 | Outpatient (CLI) | payer MEDICARE, SELFPAY ==
[2022-12-14 20:46] LABS: Theophylline < 2.5 mg/L (10.0-20.0)
[2022-12-16 20:15] LABS: Immunoglobulin G, Serum 575 mg/dL (600-1540); Immunoglobulin G1 323 mg/dL (382-929); Immunoglobulin G2 135 mg/dL (241-700); Immunoglobulin G3 45 mg/dL (22-178); Immunoglobulin G4 33.2 mg/dL (4.0-86.0)
== END 2022-12-11 15:00 | disposition home or self-care (01) ==
LOC: CHSLAB 15:01
PROVIDERS: PCP Physician Assistant; Visit Provider Physician Assistant
DX: J44.9 Chronic obstructive pulmonary disease, unspecified (principal); J18.9 Pneumonia, unspecified organism
CPT/HCPCS: 36415; 80198; 82784; 82787

== ENCOUNTER 2023-08-13 08:02 | Outpatient (CLI) | payer MEDICARE, SELFPAY ==
--- NOTE | ~2023-08-13 | CT_ITS ---
CT Scan of the Chest without Contrast: Clinical Indication: Lung cancer screening, smoking history Technique: Contiguous sections were acquired throughout the chest without intravenous contrast. Dose reduction technique was used on this scan by utilizing automated exposure control and iterative recon struction technique. The dose-length product (DLP) was 181.45 mGy-cm. COMPARISON: 08/10/2022 Findings: There is no evidence of any significant mediastinal, hilar or axillary lymphadenopathy. There are ath erosclerotic calcifications of the aorta and coronary arteries. There is no evidence of pleural or pericardial effusion. Severe emphysema present. No distinct pulmonary nodule identified. Images through the upper abdomen reveal no abnormalities. Impression: Lung RADS 1: Negative. 12 month follow-up screening CT advised. Severe emphysema. Reviewed, dictated and finalized at [facility]. Impression: Lung RADS 1: Negative. 12 month follow-up screening CT advised. Severe emphysema.
== END 2023-08-13 08:03 | disposition home or self-care (01) ==
LOC: CHSIMG 08:03
PROVIDERS: PCP Internal Medicine; Visit Provider Nurse Practitioner Family
DX: Z12.2 Encounter for screening for malignant neoplasm of respiratory organs (principal); Z87.891 Personal history of nicotine dependence; J43.9 Emphysema, unspecified
CPT/HCPCS: 71271

== ENCOUNTER 2023-10-27 11:31 | Outpatient (CLI) | payer MEDICARE, SELFPAY ==
--- NOTE | ~2023-10-27 | XR_ITS ---
XR chest 2V 10/27/2023 11:52 Indication: Cough. Dyspnea. Procedure: 2 view chest Comparison: 10/27/2022 Findings: Heart size normal. There is hyperinflation, consistent with emphysema. No focal air space d isease, pulmonary edema, pleural effusion or suspected pneumothorax. Impression: 1: No acute cardiopulmonary disease. 2: Emphysema. Reviewed, dictated and finalized at location B. CHARGER Impression: 1: No acute cardiopulmonary disease. 2: Emphysema.
[2023-10-27 12:49] LABS: SARS-CoV-2 RNA PCR Negative (Negative)
[2023-10-27 12:55] LABS: Influenza A QL RT-PCR Negative (Negative); Influenza B QL RT-PCR Negative (Negative); RSV RNA, RT-PCR Negative (Negative)
== END 2023-10-27 11:32 | disposition home or self-care (01) ==
LOC: CHSLAB 11:33
PROVIDERS: PCP Internal Medicine; Visit Provider Nurse Practitioner Family
DX: Z20.822 Contact with and (suspected) exposure to COVID-19 (principal)
CPT/HCPCS: 71046; 87637

== ENCOUNTER 2024-03-15 13:33 | Emergency (ER) | payer MEDICARE, SELFPAY ==
--- NOTE | ~2024-03-15 | CT_ITS ---
EXAMINATION: CT abdomen pelvis wo con DATE: 03/15/2024 14:25 INDICATION: Left flank pain TECHNIQUE: Computed tomography (CT) of the abdomen and pelvis was performed without intravenous contr ast. Automated exposure control and iterative reconstruction technique were employed. The dose-length product was 170.69 mGy-cm. COMPARISON: None FINDINGS: Severe emphysema at the visualized lung bases. This is inferior heart is normal. No pericardial or pl eural effusion. Liver, gallbladder, spleen, pancreas, bilateral adrenal glands and left kidney are no rmal. 2 mm nonobstructing stone at the lower pole of the right kidney. Moderate to large amount of st ool scattered throughout the colon. No dilated loops of bowel to suggest obstruction. Bladder is norm al. Prostatomegaly measuring 4.6 x 3.7 cm. No free intraperitoneal gas or fluid. There is calcified atherosclerosis of the aorta and many of the other arteries. No pathologically enlarged abdominal or pelvic lymphadenopathy. IMPRESSION: 1. No acute intra-abdominal/pelvic process. 2. 2 mm nonobstructing right renal stone. Line 3. Prostatomegaly. Reviewed, dictated and finalized at location A.
[2024-03-15 13:34] VITALS: BP 125/74; PULSE 90; RESP 20; TEMP 37.2; O2SAT 96
--- NOTE | 2024-03-15 13:42 | ED.MALEGU ---
HPI - Male Genitourinary General Chief complaint: Urogenital-Male Stated complaint: L Flank pain Time Seen by Provider: 03/15/24 13:42 Source: patient Mode of arrival: ambulatory Limitations: no limitations History of Present Illness HPI Narrative: 68-year-old male with a history of COPD on oxygen presents to the ER with an 8 hour history of -- left flank pain which is intermittent and rated as 10/10. -- Dysuria with increased frequency of micturition. -- Patient has precipitate with a tendency for incontinence No nausea/ vomiting. No fever. Onset (ago): hour(s) ( 8 hours) Duration: intermittent Severity: severe Quality: aching Relieving factors: none Exacerbating factors: none Associated symptoms: Reports denies other symptoms Related Data Home Medications Medication Instructions Recorded Confirmed montelukast 10 mg tablet 10 mg PO DAILY 03/24/21 03/15/24 Allergies Allergy/AdvReac Type Severity Reaction Status Date / Time No Known Allergies Allergy Unverified 08/13/23 12:56 Review of Systems Review of Systems: All systems reviewed & are unremarkable except as noted in HPI and below Constitutional: Constitutional: Reports as per HPI and Reports no additional constitutional complaints Eyes: Eyes: Reports as per HPI and Reports no additional eye complaints ENT: Reports system reviewed and no additional complaints, except as documented and Reports as per HPI Cardiovascular: Cardiovascular: Reports as per HPI and Reports no additional cardiovascular complaints Respiratory: Respiratory: Reports as per HPI and Reports dyspnea Comments: chronic cough and shortness of breath Gastrointestinal: Gastrointestinal: Reports as per HPI and Reports abdominal pain Comments: left flank pain Genitourinary: Genitourinary: Reports urinary frequency and Reports urinary incontinence Comments: dysuria Musculoskeletal: Musculoskeletal: Reports no additional musculoskeletal complaints and Reports as per HPI Integumentary/Breasts: Skin/Breast: Reports system reviewed and no additional complaints, except as docu and Reports as per HPI Neurologic: Reports system reviewed and no additional complaints, except as documented and Reports as per HPI Psychiatric: Psychiatric: Reports no additional psychiatric complaints and Reports as per HPI Endocrine: Endocrine: Reports no additional endocrine complaints and Reports as per HPI Hematologic/Lymphatic: Hematologic/Lymphatic: Reports no additional hematologic/lymphatic complaints and Reports as per HPI Allergic/Immunologic: Allergic/Immunologic: Reports no additional allergic/immunologic complaints and Reports as per HPI [facility] Past Medical History Medical History COPD (chronic obstructive pulmonary disease) Social History Social History Smoking packs per day: 1 Smoking cigarettes per day: 20.0 Years smoked: 40 Smoking pack-years: 40.00 Smoking status: Current every day smoker Second hand tobacco smoke exposure: Yes Alcohol intake: former Exam Const: General: no acute distress Limitations: no limitations HENMT: Head: normal to inspection Face/Nose/Sinus: Normal external nose present Face and sinus: normal facial exam Mouth: Yes Normal oral and palatal mucosa present Throat: posterior oropharynx normal Eyes: Conjunctivae: conjunctivae normal Pupils: Equal, round and reactive pupils present EOM: EOMs intact bilaterally Direct Ophthalmoscopy: no photophobia Neck: Neck: normal visual inspection, no lymphadenopathy and no meningeal signs Chest: Chest palpation & inspection: normal inspection of the chest Resp: Effort & Inspection: normal respiratory effort Auscultation: diminished lung sounds Cardio: Rate: regular rate Rhythm: regular rhythm GI: GI Palp: Yes Soft to palpation Auscultation: normal bowel sounds Ot
[2024-03-15 14:15] LABS: Basophils Absolute Auto 0.05 K/mm3 (0.00-0.10); Eosinophils Absolute Auto 0.13 K/mm3 (0.02-0.50); Eosinophils Percent Auto 2.5 % (1.0-6.0); Hematocrit 41.9 % (37.0-46.0); Hemoglobin 13.4 g/dL (12.4-15.3); Immature Granulocyte Absolute 0.01 K/mm3 (0.00-0.00); Immature Granulocyte Percent A 0.2 % (0.0-0.0); Lymphocytes Absolute Auto 1.82 K/mm3 (1.10-4.50); Lymphocytes Percent Auto 34.7 % (18.0-42.0); Mean Corpuscular Hemoglobin 31.2 pg (27.0-31.0); Mean Corpuscular Volume 97.4 fL (78.0-102.0); Mean Platelet Volume 10.4 fl (8.7-11.0); Monocytes Absolute Auto 0.46 K/mm3 (0.10-0.90); Monocytes Percent Auto 8.8 % (2.0-11.0); Neutrophils Absolute Auto 2.78 K/mm3 (1.70-7.20); Neutrophils Percent Auto 52.8 % (50.0-70.0); Platelet Count Result 177 K/mm3 (150-420); Red Cell Distribution Width 13.1 % (11.6-14.4); White Blood Count 5.3 K/mm3 (4.8-10.8)
[2024-03-15 14:28] LABS: Partial Thromboplastin Time 25.3 Sec (23.9-30.70)
[2024-03-15 14:30] LABS: Alanine Aminotransferase 22 U/L (16-63); Albumin Level 3.5 g/dL (3.4-5.0); Alkaline Phosphatase 87 U/L (46-116); Anion Gap 3 mmol/L (4-12); Aspartate Amino Transferase 26 U/L (15-37); Bilirubin,Total 0.5 mg/dL (0.00-1.00); Blood Urea Nitrogen 8 mg/dL (7-18); Calcium 8.8 mg/dL (8.5-10.1); Carbon Dioxide 38 mmol/L (21-32); Chloride 96 mmol/L (98-108); Estimated CRCL calculation 50 ml/min; Estimated Glomerular Filt Rate > 60; Glucose 110 mg/dL (70-99); Lipase 35 U/L (16-77); Osmolality Calculated 283 mOsm/kg (285-295); Potassium 4.1 mmol/L (3.5-5.1); Sodium 137 mmol/L (136-145); Total Protein 6.2 g/dL (6.4-8.2)
[2024-03-15 14:33] LABS: Lactic Acid Reflex 1.8 mmol/L (0.4-2.0)
[2024-03-15 14:41] LABS: Appearance Urine Clear (Clear); Bilirubin Urine Negative (Negative); Blood Urine Negative (Negative); Color Urine Yellow (Yellow); Glucose Urine UA Negative (Negative); Ketones Urine Negative (Negative); Leukocyte Esterase Ur Negative LEU/UL (Negative); Nitrate Urine Negative (Negative); Protein Urine Negative (Negative); Specific Grav Ur 1.015 (1.010-1.020)
[2024-03-15 15:32] LABS: Add Urine Microscopic? YES; Bacteria Urine Trace /hpf; Mucus Urine Few /lpf; RBC Urine None seen /hpf (0-2); Squamous Epithelial Cell Urine Rare /hpf (Few); WBC Urine None seen /hpf (0-3)
[2024-03-15 15:41] VITALS: BP 140/89; PULSE 84; RESP 20; TEMP 36.9; O2SAT 97
== END 2024-03-15 15:41 | disposition home or self-care (01) ==
PROVIDERS: Emergency Provider Internal Medicine Critical Care Medicine; PCP Internal Medicine
DX: N40.1 Benign prostatic hyperplasia with lower urinary tract symptoms (principal); K59.00 Constipation, unspecified; R10.9 Unspecified abdominal pain; J44.9 Chronic obstructive pulmonary disease, unspecified; F17.210 Nicotine dependence, cigarettes, uncomplicated; Z79.51 Long term (current) use of inhaled steroids
CPT/HCPCS: 36415; 74176; 80053; 81001; 83605; 83690; 85025; 85730; 99284

== ENCOUNTER 2024-08-14 08:49 | Outpatient (CLI) | payer MEDICARE, SELFPAY ==
--- NOTE | ~2024-08-14 | CT_ITS ---
CT Scan of the Chest without Contrast: Clinical Indication: Lung cancer screening, nicotine dependence Technique: Contiguous sections were acquired throughout the chest without intravenous contrast. Dose reduction technique was used on this scan by utilizing automated exposure control and iterative recon struction technique. The dose-length product (DLP) was 72.52 mGy-cm. COMPARISON: 08/13/2023 Findings: There is no evidence of any significant mediastinal, hilar or axillary lymphadenopathy. Coronary jeannie ry calcifications are present. Atherosclerotic ossifications of the aorta are present. There is no evidence of pleural or pericardial effusion. Advanced emphysema and biapical scarring is present. Posterior left upper lobe 8 mm nodule is new fro m prior exam (axial image 30). There is left basilar atelectasis or scarring. Images through the upper abdomen reveal no abnormalities. Impression: Lung RADS 4A: Suspicious. 3 month follow-up CT scan recommended given new 8mm left upper lobe pulmona ry nodule. Severe emphysema. Reviewed, dictated and finalized at location M. Impression: Lung RADS 4A: Suspicious. 3 month follow-up CT scan recommended given new 8mm l eft upper lobe pulmonary nodule. Severe emphysema.
== END 2024-08-14 08:50 | disposition home or self-care (01) ==
PROVIDERS: PCP Internal Medicine; Visit Provider Nurse Practitioner Family
DX: Z12.2 Encounter for screening for malignant neoplasm of respiratory organs (principal); Z87.891 Personal history of nicotine dependence; R91.8 Other nonspecific abnormal finding of lung field
CPT/HCPCS: 71271

== ENCOUNTER 2024-11-24 12:48 | Outpatient (CLI) | payer MEDICARE, SELFPAY ==
--- NOTE | ~2024-11-24 | CT_ITS ---
EXAMINATION: CT diagnostic chest wo con DATE: 11/24/2024 13:04 INDICATION: R91.1 - Solitary pulmonary nodule, FOLLOW UP TECHNIQUE: Computed tomography (CT) of the chest was performed without intravenous contrast. Addition al 3D reconstructions utilizing coronal maximum intensity projection (MIP) were performed. Automated exposure control and iterative reconstruction technique were employed. The dose-length product was 15 8.13 mGy-cm. COMPARISON: 08/14/2024 FINDINGS: Severe emphysema with unchanged mild biapical pleural-parenchymal scarring. Interval decrease in size of a previously 9 x 6 mm, currently 7 x 4 mm nodular density along a small tear. The peripheral atel ectasis/scarring in the posterior left upper lobe. No other new or enlarging pulmonary nodules. No pn eumonia, pulmonary edema or pleural effusion. There is small amount of bubbly mucus in the dependent aspect of the trachea. Heart size is normal. Atherosclerotic coronary artery calcific aeration. Thora cic aorta is normal in caliber. No pathologically enlarged thoracic lymphadenopathy. Visualized upper abdomen is unremarkable. Mild thoracic dextrocurvature. IMPRESSION: 1. Severe emphysema with interval decrease in size of a previously 9 x 6 mm, currently 7 x 4 mm left upper lobe nodule. Recommend return to annual low-dose noncontrast chest CT screening. Reviewed, dictated and finalized at location A. CAP IMPRESSION: 1. Severe emphysema with interval decrease in size of a previously 9 x 6 mm, cu rrently 7 x 4 mm left upper lobe nodule. Recommend return to annual low-dose no ncontrast chest CT screening.
== END 2024-11-24 12:49 | disposition home or self-care (01) ==
LOC: CHSIMG 12:49
PROVIDERS: PCP Internal Medicine; Visit Provider Nurse Practitioner Family
DX: R91.1 Solitary pulmonary nodule (principal); J43.9 Emphysema, unspecified
CPT/HCPCS: 71250